=== PATIENT | female | born 1990 | race Caucasian/White ===

== ENCOUNTER 2018-04-04 16:15 | Emergency (ER) | payer MEDICAID ==
[~2018-04-04] VITALS: Ht 175.3 cm; Wt 79.4 kg
[2018-04-04 16:19] VITALS: BP 124/78
[2018-04-04] MEDS ORDERED: DIPH,PERTUSS(ACELL),TET VAC/PF 0.5 ML IM-VACC ONE ×2 (16:48→17:00)
== END 2018-04-04 17:54 | disposition home or self-care (01) ==
LOC: ED 16:50
DX: S05.12XA Contusion of eyeball and orbital tissues, left eye, initial encounter (principal); S00.83XA Contusion of other part of head, initial encounter; Y08.89XA Assault by other specified means, initial encounter; Y93.89 Activity, other specified; Y92.488 Other paved roadways as the place of occurrence of the external cause; Y99.8 Other external cause status
CPT/HCPCS: 70486; 90471; 90715; 99284